=== PATIENT | male | born 1985 | race Hispanic/Latino ===

== ENCOUNTER 2021-05-24 12:05 | Emergency (ER) | payer SELFPAY ==
--- NOTE | 2021-05-24 14:10 | RAD REPORT ---
EXAM DESCRIPTION: RAD - Chest Pa And Lat (2 Views) - 05/24/2021 1:47 pm CLINICAL HISTORY: Cough;Dyspnea, COVID positive COMPARISON: None TECHNIQUE: Frontal and lateral views of the chest were obtained. FINDINGS: The lungs are underinflated. Patchy alveolar opacities are present in the mid and lower evelyn ng mosquera worse in the lower left lung field. No cavitation or dense consolidation. Heart size is upper normal. Central vasculature within normal limits. Trachea is midline. No pleur al effusion or pneumothorax seen. No acute bony finding noted. No aortic abnormality. IMPRESSION: Bilateral pneumonia pattern is present. Given the history, a mild bilateral COVID-19 pn eumonia is most likely.
--- NOTE | 2021-05-24 15:07 | EDPHYS ---
Physician Documentation [facility] Name: Patrice Brian Age: 35 yrs Sex: Male : 1985 Arrival Date: 05/24/2021 Time: 12:10 Bed 11 Private MD: ED Physician Tejinder Chu HPI: 05/24 15:09 This 35 yrs old Male presents to ER via Ambulatory with complaints of Covid + kb SOB. 15:09 The patient or guardian reports cough, that is intermittent, described as mild, kb difficulty breathing. Onset: The symptoms/episode began/occurred 10 day(s) ago. Severity of symptoms: At their worst the symptoms were mild, moderate, in the emergency department the symptoms are unchanged. Modifying factors: The symptoms are alleviated by nothing, the symptoms are aggravated by nothing. Associated signs and symptoms: The patient has no apparent associated signs or symptoms. The patient has not experienced similar symptoms in the past. The patient has not recently seen a physician. Pt reports he has had covid for 10 days. Shortness of breath got worse 2 days ago. Historical: - Allergies: 12:52 No Known Allergies; ll1 - PMHx: 12:52 None; ll1 - PSHx: 12:52 None; ll1 - Immunization history:: Client reports having NOT received the Covid vaccine. Flu vaccine status is unknown. - Social history:: Smoking status: Patient denies any tobacco usage or history of. ROS: 15:08 Constitutional: Negative for fever, chills, and weight loss. kb 15:08 Respiratory: Positive for cough, dyspnea on exertion, shortness of breath, Negative for hemoptysis, orthopnea, pleurisy, sputum production, wheezing. Exam: 15:09 Constitutional: This is a well developed, well nourished patient who is awake, alert, kb and in no acute distress. Head/Face: Normocephalic, atraumatic. ENT: Moist Mucous membranes Cardiovascular: Regular rate and rhythm with a normal S1 and S2. No gallops, murmurs, or rubs. No pulse deficits. Respiratory: Respirations even and unlabored. No increased work of breathing, no retractions or nasal flaring. Skin: Warm, dry with normal turgor. Normal color. MS/ Extremity: Pulses equal, no cyanosis. Neurovascular intact. Full, normal range of motion. Neuro: Awake and alert, GCS 15, oriented to person, place, time, and situation. Moves all extremities. Normal gait. Psych: Awake, alert, with orientation to person, place and time. Behavior, mood, and affect are within normal limits. Vital Signs: 12:50 BP 103 / 64; Pulse 96; Resp 20; Temp 99.6; Pulse Ox 94% ; Weight 99.79 kg; Height 6 ft. ll1 0 in. (182.88 cm); Pain 5/10; 15:07 BP 108 / 73; Pulse 78; Resp 20; Pulse Ox 96% on R/A; vg1 12:50 Body Mass Index 29.84 (99.79 kg, 182.88 cm) ll1 MDM: 14:59 Patient medically screened. kb 15:06 Data reviewed: vital signs, nurses notes. Data interpreted: Pulse oximetry: on room air kb is 96 %. Interpretation: normal. Counseling: I had a detailed discussion with the patient and/or guardian regarding: the historical points, exam findings, and any diagnostic results supporting the discharge/admit diagnosis, radiology results, the need for outpatient follow up, a family practitioner, to return to the emergency department if symptoms worsen or persist or if there are any questions or concerns that arise at home. ED course: Oxygen sat 96% on room air. Lungs clear bilaterally. Resp even and unlabored. Nontoxic in appearance. 05/24 12:54 Order name: Chest Pa And Lat (2 Views) XRAY; Complete Time: 14:14 kb Administered Medications: No medications were administered Disposition: 05/25 08:14 Co-signature as Attending Physician, Tejinder Chu MD I agree with the assessment and shawn plan of care. Disposition Summary: 05/24/21 15:07 Discharge Ordered Location: Home kb Condition: Stable kb Diagnosis - Coronavirus infection, unspecified kb - Pneumonia due to SARS-associated coronavirus kb Followup: kb - With: Emergency Department - When: As needed - Reason: Worsening of condition Followup: kb - With: Private Physician - When: 2 - 3 days - Reason: Recheck today's complaints, Continuance of care, Re-evaluation by your physician Discharge Instructions: - Discharge Summary Sheet kb - COVID-19 kb - COVID-19 Frequently Asked Questions kb - 10 Things You Can Do to Manage Your COVID-19 Symptoms at Home - [facility] [place] kb Forms: - Medication Reconciliation Form kb - Work release form kb - Thank You Letter kb - Antibiotic Education kb - Prescription Opioid Use kb Signatures: Dispatcher [employer] EDFrances Deal, RAMESH STRAUSS-Tejinder Díaz MD MD cha Lewis, Lynsay, RN RN ll1 Corrections: (The following items were deleted from the chart) 05/24 15:09 15:09 Constitutional: This is a well developed, well nourished patient who is awake, kb alert, and in no acute distress. Head/Face: Normocephalic, atraumatic. ENT: Moist Mucous membranes Respiratory: Respirations even and unlabored. No increased work of breathing, no retractions or nasal flaring. Skin: Warm, dry with normal turgor. Normal color. MS/ Extremity: Pulses equal, no cyanosis. Neurovascular intact. Full, normal range of motion. Neuro: Awake and alert, GCS 15, oriented to person, place, time, and situation. Moves all extremities. Normal gait. Psych: Awake, alert, with orientation to person, place and time. Behavior, mood, and affect are within normal limits. kb
--- NOTE | 2021-05-24 15:07 | ER ---
Nurse's Notes [facility] Name: Patrice Brian Age: 35 yrs Sex: Male : 1985 Arrival Date: 05/24/2021 Time: 12:10 Bed 11 Private MD: Diagnosis: Coronavirus infection, unspecified;Pneumonia due to SARS-associated coronavirus Presentation: 05/24 12:50 Chief complaint: Patient states: Cough, JUNIOR's, diarrhea, SOB, fatigue for about 10 days. ll1 Tested positive for covid on Sunday. Sent by PCP for SOB and further eval. Coronavirus screen: Vaccine status: Patient reports being unvaccinated. Client denies travel out of the [place] in the last 14 days. congestion, cough unrelated to allergies, difficulty breathing, fatigue, headache, shortness of breath, Client presents with at least one sign or symptom that may indicate coronavirus-19. Standard/surgical mask placed on the client. Ebola Screen: Patient denies travel to an Ebola-affected area in the 21 days before illness onset. Initial Sepsis Screen: Does the patient meet any 2 criteria? HR > 90 bpm. No. Patient's initial sepsis screen is negative. Does the patient have a suspected source of infection? Yes: Productive cough/pneumonia. Risk Assessment: Do you want to hurt yourself or someone else? Patient reports no desire to harm self or others. Onset of symptoms was May 14, 2021. 12:50 Method Of Arrival: Ambulatory ll1 12:50 Acuity: DOMINGA 3 ll1 Historical: - Allergies: 12:52 No Known Allergies; ll1 - PMHx: 12:52 None; ll1 - PSHx: 12:52 None; ll1 - Immunization history:: Client reports having NOT received the Covid vaccine. Flu vaccine status is unknown. - Social history:: Smoking status: Patient denies any tobacco usage or history of. Screenin:08 Abuse screen: Denies threats or abuse. Nutritional screening: No deficits noted. vg1 Tuberculosis screening: No symptoms or risk factors identified. Fall Risk None identified. Assessment: 15:06 General: Appears in no apparent distress. comfortable, Behavior is calm, cooperative. vg1 Pain: Complains of pain in headache Pain currently is 5 out of 10 on a pain scale. Pain began 2-3 days ago. Neuro: Level of Consciousness is awake, alert, obeys commands, Oriented to person, place, time, situation, Reports headache. Cardiovascular: Patient's skin is warm and dry. Respiratory: Reports shortness of breath on exertion cough that is dry, Airway is patent Respiratory effort is even, unlabored. GI: No signs and/or symptoms were reported involving the gastrointestinal system. : No signs and/or symptoms were reported regarding the genitourinary system. EENT: No signs and/or symptoms were reported regarding the EENT system. Derm: Skin is intact, is healthy with good turgor. Musculoskeletal: Circulation, motion, and sensation intact. Vital Signs: 12:50 BP 103 / 64; Pulse 96; Resp 20; Temp 99.6; Pulse Ox 94% ; Weight 99.79 kg; Height 6 ft. ll1 0 in. (182.88 cm); Pain 5/10; 15:07 BP 108 / 73; Pulse 78; Resp 20; Pulse Ox 96% on R/A; vg1 12:50 Body Mass Index 29.84 (99.79 kg, 182.88 cm) ll1 ED Course: 12:10 Patient arrived in ED. ds1 12:52 Triage completed. ll1 12:52 Arm band placed on. ll1 12:54 [facility]C [facility] kb 12:54 Tejinder Chu MD is Attending Physician. kb 13:47 Chest Pa And Lat (2 Views) XRAY In Process Unspecified. EDMS 15:06 Layla Smith RN is Primary Nurse. vg1 15:08 Patient has correct armband on for positive identification. Bed in low position. Call vg1 light in reach. 15:08 No provider procedures requiring assistance completed. Patient did not have IV access vg1 during this emergency room visit. Administered Medications: No medications were administered Outcome: 15:07 Discharge ordered by . kb 15:30 Discharged to home ambulatory. vg1 15:30 Condition: stable 15:30 Discharge instructions given to patient, Instructed on discharge instructions, follow up and referral plans. Demonstrated understanding of instructions, follow-up care. 15:30 Patient left the ED. vg1 Signatures: Dispatcher [employer] EDOH Frances Grier FNP-C FNP-Sejal Oseguera ds1 Layla Smith RN RN vg1 Jak Guerrero, RN RN ll1
[2021-05-24 16:10] VITALS: TEMP 99.6
[2021-05-24 16:11] VITALS: BP 108/73; O2SAT 96
== END 2021-05-24 15:30 | disposition home or self-care (01) ==
LOC: ER 12:05
DX: U07.1 COVID-19 (principal); J12.82 Pneumonia due to coronavirus disease 2019
CPT/HCPCS: 71046; 99283